=== PATIENT | female | born 1955 | race Caucasian/White ===

== ENCOUNTER 2020-09-03 15:35 | Emergency (ER) | payer MEDICARE, MEDICAID ==
[~2020-09-03] VITALS: Ht 165.1 cm; Wt 97.7 kg
[~2020-09-03 15:35] MED LIST: ASPI81TA52 PO; CARV3.122 PO; FURO40TA4 PO; GABA-532 PO; INSU100C4 SQ; MULT-933 PO; PANT40TA54 PO
[2020-09-03] MEDS ORDERED: normal saline 1000ML IV soln IVB ONE ×2 (16:15→21:45)
--- NOTE | 2020-09-03 16:25 | NUR ---
EKG NOT ABLE TO BE COMPLETED DUE TO PT HAVING LVAD.
[2020-09-03 16:44] LABS: BASOPHILS % (AUTO) 0.4 % (0-1); EOSINOPHILS % (AUTO) 0 % (0-6); HEMATOCRIT 26.2 % (35.0-45.0); HEMOGLOBIN 8.7 g/dl (12.0-16.0); LYMPHOCYTES # (AUTO) 0.4 X10'3 (1.1-4.8); LYMPHOCYTES % (AUTO) 5.7 % (21-51); MEAN CORPUSCULAR HEMOGLOBIN 27.8 PG (27.0-31.0); MEAN CORPUSCULAR VOLUME 84.3 FL (78-98); MEAN PLATELET VOLUME 9.2 FL (7.4-10.4); MONOCYTES # (AUTO) 0.8 X10'3 (0-0.9); MONOCYTES % (AUTO) 11.2 % (2-12); NEUTROPHILS # (AUTO) 5.9 X10'3 (1.8-7.7); NEUTROPHILS % (AUTO) 82.7 % (42-75); PLATELET COUNT 152 X10'3 (140-440); RED BLOOD COUNT 3.11 X10'6 (4.20-5.60); RED CELL DISTRIBUTION WIDTH 16.3 % (11.5-14.5); WHITE BLOOD COUNT 7.1 X10'3 (4.5-11.0)
[2020-09-03 16:55] LABS: ALANINE AMINOTRANSFERASE 15 U/L (12-78); ALBUMIN 3.1 G/DL (3.4-5.0); ALBUMIN/GLOBULIN RATIO 0.8 (1.1-1.5); ALKALINE PHOSPHATASE 76 IU/L (46-116); ANION GAP 11 (8-16); ASPARTATE AMINO TRANSFERASE 14 U/L (10-37); BILIRUBIN,TOTAL 0.6 MG/DL (0.1-1.0); BLOOD UREA NITROGEN 40 MG/DL (7-18); BUN/CREATININE RATIO 16.9 (6.6-38.0); CALCIUM 8.2 MG/DL (8.5-10.1); CHLORIDE 95 MMOL/L (99-107); CREATININE 2.37 MG/DL (0.40-0.90); GLUCOSE 204 MG/DL (70-104); POTASSIUM 4.4 MMOL/L (3.5-5.1); SODIUM 127 MMOL/L (135-145); TOTAL CARBON DIOXIDE 20.6 MMOL/L (24-32); TOTAL PROTEIN 7.1 G/DL (6.4-8.2); eGFR 21 ML/MIN
[2020-09-03 17:50] LABS: CLARITY,URINE CLOUDY (Clear); COLOR,URINE YELLOW (Yellow); GLUCOSE, URINE 100 mg/dl (Neg); KETONES,URINE NEGATIVE (Neg); LEUKOCYTE ESTERASE ,URINE NEGATIVE (Neg); NITRITES, URINE POSITIVE (Neg); OCCULT BLOOD,URINE TRACE-INTACT (Neg); PH,URINE 5.5 (4.8-8.0); PROTEIN,URINE 100 mg/dl (Neg); UA COLLECTION TYPE STRAIGHT CATH
--- NOTE | 2020-09-03 17:58 | NUR ---
HEMALATHA VORA GIVEN REPORT
[2020-09-03 18:03] LABS: SQUAMOUS EPITHELIAL CELL,UR FEW /LPF (FEW)
[2020-09-03 18:04] LABS: AMORPHOUS URATES 2+; BACTERIA,URINE 3+ /HPF (Neg); RBC,URINE 0-2 /HPF (0-2); WBC,URINE 0-4 /HPF (0-4)
[2020-09-03 19:19] VITALS: BP_DIAS 96
--- NOTE | 2020-09-03 19:28 | NUR ---
PTS SON REPORTS PT NEED TO USE BATHROOM. PLACED ON BP TO VOID.
--- NOTE | 2020-09-03 21:06 | NUR ---
son [facility] cell [phone] & second cell [phone]
[2020-09-03] MEDS ORDERED: normal saline 1000ml 1,000 ML IV ONE (21:45)
--- NOTE | 2020-09-03 21:52 | NUR ---
dr vides spoke to dr edwards from [facility] for md to
--- NOTE | 2020-09-03 21:54 | NUR ---
clarified dr vides's fluid orders: patient received 50o ml bolus, then needs ns @ 150 ml/hr
--- NOTE | 2020-09-03 22:46 | NUR ---
[place] [facility] [place] at bedside. pt to be flown. eta 1 hr 4 min from order picker time.
[2020-09-03] MEDS ORDERED: warfarin 10mg tablet PO ONE (23:25)
[2020-09-03] MEDS ORDERED: lisinopril 10 MG tablet PO ONE (23:25)
[2020-09-03] MEDS ORDERED: metFORMIN 500mg tablet PO ONE (23:25)
[2020-09-03] MEDS ORDERED: warfarin 4mg tablet PO ONE (23:35)
[2020-09-03] MEDS ORDERED: lisinopril 5mg tablet PO ONE (23:35)
[2020-09-04 00:28] VITALS: BP_SYST 120
--- NOTE | 2020-09-06 07:14 | NUR ---
Called [facility] at [phone] regarding sensitive report that we received back this morning. Berenice LOPEZ stated that they do not have a fax machine. Unable to sent sensitivity information to [facility]. Berenice LOPEZ stated that she would given [facility] ER contact information to MD and MD would contact me in the ER today.
--- NOTE | 2020-09-06 07:44 | NUR ---
Violetta LOPEZ with [facility] called back and gave fax number. [employer] faxed to [phone].
== END 2020-09-04 01:41 | disposition short-term general hospital (02) ==
LOC: ER 15:35
DX: N17.9 Acute kidney failure, unspecified (principal); Z20.822 Contact with and (suspected) exposure to COVID-19; E86.0 Dehydration; R42 Dizziness and giddiness; R41.0 Disorientation, unspecified; I50.9 Heart failure, unspecified; I48.91 Unspecified atrial fibrillation; E78.00 Pure hypercholesterolemia, unspecified; J44.9 Chronic obstructive pulmonary disease, unspecified; K21.9 Gastro-esophageal reflux disease without esophagitis; Z95.5 Presence of coronary angioplasty implant and graft; Z79.82 Long term (current) use of aspirin; Z79.899 Other long term (current) drug therapy
CPT/HCPCS: 36415; 71045; 80053; 81001; 83880; 84484; 85025; 87077; 87088; 87186; 87426; 99285; J7030

== ENCOUNTER 2021-03-17 14:21 | Outpatient (CLI) | payer MEDICARE, MEDICAID | END 2021-03-17 23:59 | disposition home or self-care (01) | LOC: CARD DIAG 14:21 | PROVIDERS: ATTEND Internal Medicine Cardiovascular Disease | DX: I08.3 Combined rheumatic disorders of mitral, aortic and tricuspid valves (principal); J90 Pleural effusion, not elsewhere classified; Z95.811 Presence of heart assist device | CPT/HCPCS: 71046; 93306 ==

== ENCOUNTER 2021-06-11 18:30 | Emergency (ER) | payer MEDICARE, MEDICAID ==
[~2021-06-11] VITALS: Ht 165.1 cm; Wt 91.9 kg
[2021-06-11 19:24] LABS: BASOPHILS # (AUTO) 0.1 X10'3 (0-0.2); BASOPHILS % (AUTO) 1.3 % (0-1); EOSINOPHILS # (AUTO) 0.2 X10'3 (0-0.9); EOSINOPHILS % (AUTO) 4.6 % (0-6); HEMATOCRIT 23.6 % (35.0-45.0); HEMOGLOBIN 7.5 g/dl (12.0-16.0); LYMPHOCYTES # (AUTO) 0.7 X10'3 (1.1-4.8); LYMPHOCYTES % (AUTO) 12.5 % (21-51); MEAN CORPUSCULAR HEMOGLOBIN 28.4 PG (27.0-31.0); MEAN CORPUSCULAR HGB CONC 31.9 g/dL (33.0-36.5); MEAN CORPUSCULAR VOLUME 88.9 FL (78-98); MONOCYTES # (AUTO) 0.5 X10'3 (0-0.9); MONOCYTES % (AUTO) 8.9 % (2-12); NEUTROPHILS # (AUTO) 3.8 X10'3 (1.8-7.7); NEUTROPHILS % (AUTO) 72.7 % (42-75); PLATELET COUNT 232 X10'3 (140-440); RED BLOOD COUNT 2.65 X10'6 (4.20-5.60); RED CELL DISTRIBUTION WIDTH 18.9 % (11.5-14.5); WHITE BLOOD COUNT 5.3 X10'3 (4.5-11.0)
[2021-06-11 19:41] LABS: ALANINE AMINOTRANSFERASE 40 U/L (12-78); ALBUMIN/GLOBULIN RATIO 1.1 (1.1-1.5); ALKALINE PHOSPHATASE 82 IU/L (46-116); ANION GAP 9 (8-16); ASPARTATE AMINO TRANSFERASE 30 U/L (10-37); BILIRUBIN,TOTAL 0.4 MG/DL (0.1-1.0); BLOOD UREA NITROGEN 48 MG/DL (7-18); BUN/CREATININE RATIO 26.7 (6.6-38.0); CALCIUM 9.3 MG/DL (8.5-10.1); CHLORIDE 104 MMOL/L (99-107); GLUCOSE 115 MG/DL (70-104); POTASSIUM 4.2 MMOL/L (3.5-5.1); SODIUM 138 MMOL/L (135-145); TOTAL CARBON DIOXIDE 24.6 MMOL/L (24-32); TOTAL PROTEIN 7.5 G/DL (6.4-8.2); eGFR 28 ML/MIN
[2021-06-11 19:49] LABS: MAGNESIUM 2.2 MG/DL (1.5-2.4)
[2021-06-11 21:34] LABS: OCCULT BLOOD STOOL POSITIVE (Neg)
[2021-06-11 21:38] LABS: ANISOCYTOSIS 2+; PLATELET ESTIMATE NORMAL; POLYCHROMASIA FEW
[2021-06-11 21:39] LABS: ELLIPTOCYTES FEW; TEAR DROP CELLS FEW
[2021-06-11 22:33] VITALS: BP 118/96
[2021-06-11 22:48] VITALS: BP 109/90
[2021-06-11 23:48] VITALS: BP 110/64
[2021-06-12 06:01] VITALS: BP 101/86
--- NOTE | 2021-06-12 09:10 | NUR ---
Patient's son, Bay, called and will be bringing patient's home meds within an hour. [facility]: [phone]
--- NOTE | 2021-06-12 10:15 | NUR ---
Patient's son brought patient's medications. Faxed medication list to pharmacy.
--- NOTE | 2021-06-12 13:24 | NUR ---
LVAD RN coordinator from [facility] called for update; she will call transfer hospital to help expedite acceptance from hospitalist.
[2021-06-12 16:52] LABS: HEMATOCRIT 25.2 % (35.0-45.0); HEMOGLOBIN 8.2 g/dl (12.0-16.0); MEAN CORPUSCULAR HEMOGLOBIN 28.9 PG (27.0-31.0); MEAN CORPUSCULAR HGB CONC 32.6 g/dL (33.0-36.5); MEAN CORPUSCULAR VOLUME 88.6 FL (78-98); MEAN PLATELET VOLUME 8.4 FL (7.4-10.4); PLATELET COUNT 199 X10'3 (140-440); RED BLOOD COUNT 2.85 X10'6 (4.20-5.60); RED CELL DISTRIBUTION WIDTH 17.4 % (11.5-14.5); WHITE BLOOD COUNT 4.6 X10'3 (4.5-11.0)
--- NOTE | 2021-06-12 17:54 | NUR ---
Called report to JOHN Spencer at [facility] [place]. [phone]
--- NOTE | 2021-06-12 18:32 | NUR ---
Report given to JOHN Gallardo for care prior to transport.
--- NOTE | 2021-06-12 18:44 | NUR ---
Spoke to [facility], report given. ETA 2015.
--- NOTE | 2021-06-12 20:30 | NUR ---
[facility] at bedside, report given.
== END 2021-06-12 20:30 | disposition short-term general hospital (02) ==
LOC: ER 18:31
DX: D64.9 Anemia, unspecified (principal); Z20.822 Contact with and (suspected) exposure to COVID-19; K92.2 Gastrointestinal hemorrhage, unspecified; R06.02 Shortness of breath; I48.91 Unspecified atrial fibrillation; I25.10 Atherosclerotic heart disease of native coronary artery without angina pectoris; E78.00 Pure hypercholesterolemia, unspecified; J44.9 Chronic obstructive pulmonary disease, unspecified; K21.9 Gastro-esophageal reflux disease without esophagitis; Z98.890 Other specified postprocedural states; Z79.82 Long term (current) use of aspirin; Z79.4 Long term (current) use of insulin; Z79.899 Other long term (current) drug therapy
CPT/HCPCS: 36415; 36430; 71045; 80053; 82272; 83735; 83880; 84484; 85008; 85025; 85027; 85610; 86885; 86900; 86901; 86920; 87635; 93005; 99291; C9803; P9016; 99285

== ENCOUNTER 2022-08-13 15:13 | Emergency (ER) | payer MEDICARE, MEDICAID ==
[~2022-08-13] VITALS: Ht 165.1 cm; Wt 90.9 kg
[2022-08-13 15:17] VITALS: BP 123/98
[2022-08-13] MEDS ORDERED: HYDROcodone/acetaminophen 10/325mg tab PO ONE (16:00)
[2022-08-13] MEDS ORDERED: LIDOcaine 5% patch TP STA (16:00)
[2022-08-13] MEDS ORDERED: LIDO-15 TD (16:13)
[2022-08-13] MEDS ORDERED: HYDR-3965 PO ×2 (16:13)
== END 2022-08-13 16:46 | disposition home or self-care (01) ==
LOC: ER 15:14
DX: M79.605 Pain in left leg (principal); M54.59 Other low back pain
CPT/HCPCS: 73590; 99283

== ENCOUNTER 2022-08-15 19:18 | Emergency (ER) | payer MEDICARE, MEDICAID ==
[~2022-08-15 19:18] MED LIST changes: +HYDR-3965 PO; +LIDO-15 TD
[2022-08-15] MEDS ORDERED: HYDR-3965 PO (19:42)
== END 2022-08-15 19:58 | disposition left against medical advice (07) ==
LOC: ER 19:19
DX: Z76.0 Encounter for issue of repeat prescription (principal); Z53.21 Procedure and treatment not carried out due to patient leaving prior to being seen by health care provider

== ENCOUNTER 2022-09-17 12:49 | Outpatient (CLI) | payer MEDICARE, MEDICAID | END 2022-09-17 23:59 | disposition home or self-care (01) | LOC: CARD DIAG 12:49 | PROVIDERS: ATTEND Internal Medicine Cardiovascular Disease | DX: I08.8 Other rheumatic multiple valve diseases (principal); Z95.811 Presence of heart assist device | CPT/HCPCS: 93306 ==

== ENCOUNTER 2023-02-17 07:30 | Inpatient (IN) | payer MEDICARE, MEDICAID ==
[~2023-02-17] VITALS: Ht 165.1 cm; Wt 84.9 kg
[2023-02-17] MEDS ORDERED: ringers solution, lacted 1,000 ML IV ONE (08:05)
[2023-02-17 08:30] LABS: BASOPHILS % (AUTO) 0.2 % (0-1); EOSINOPHILS % (AUTO) 0.1 % (0-6); HEMOGLOBIN 8.3 g/dl (12.0-16.0); LYMPHOCYTES # (AUTO) 0.3 X10'3 (1.1-4.8); LYMPHOCYTES % (AUTO) 2.9 % (21-51); MEAN CORPUSCULAR HEMOGLOBIN 29.1 PG (27.0-31.0); MEAN CORPUSCULAR HGB CONC 33.2 g/dL (33.0-36.5); MEAN CORPUSCULAR VOLUME 87.5 FL (78-98); MEAN PLATELET VOLUME 7.3 FL (7.4-10.4); MONOCYTES # (AUTO) 0.5 X10'3 (0-0.9); NEUTROPHILS # (AUTO) 9.6 X10'3 (1.8-7.7); NEUTROPHILS % (AUTO) 91.8 % (42-75); PLATELET COUNT 190 X10'3 (140-440); RED BLOOD COUNT 2.86 X10'6 (4.20-5.60); RED CELL DISTRIBUTION WIDTH 15.6 % (11.5-14.5); WHITE BLOOD COUNT 10.5 X10'3 (4.5-11.0)
[2023-02-17 08:43] LABS: APTT 32 SECONDS (22-32); INR 1.5 INR; PROTHROMBIN TIME 15.3 SECONDS (9.0-12.0)
[2023-02-17 08:52] LABS: ALANINE AMINOTRANSFERASE 13 U/L (12-78); ALBUMIN 2.8 G/DL (3.4-5.0); ALBUMIN/GLOBULIN RATIO 0.7 (1.1-1.5); ALKALINE PHOSPHATASE 61 IU/L (46-116); ANION GAP 8 (8-16); ASPARTATE AMINO TRANSFERASE 18 U/L (10-37); BILIRUBIN,TOTAL 0.7 MG/DL (0.1-1.0); BLOOD UREA NITROGEN 25 MG/DL (7-18); BUN/CREATININE RATIO 13.2 (10.0-20.0); CALCIUM 8.3 MG/DL (8.5-10.1); CHLORIDE 94 MMOL/L (99-107); CREATININE 1.89 MG/DL (0.40-0.90); GLUCOSE 238 MG/DL (70-104); LIPASE 16 U/L (16-77); MAGNESIUM 2.1 MG/DL (1.5-2.4); SODIUM 125 MMOL/L (135-145); TOTAL CARBON DIOXIDE 23.5 MMOL/L (24-32); TOTAL PROTEIN 6.7 G/DL (6.4-8.2); eCRCL 26 ML/MIN; eGFR 26 ML/MIN
[2023-02-17 09:25] LABS: ACETONE NEGATIVE (NEGATIVE)
[2023-02-17] MEDS ORDERED: ondansetron/PF 4mg/2ml inj IV ONE (09:50)
[2023-02-17] MEDS: morphine 2 MG/ML inj. syringe IV PRN ×2 (10:11→15:18)
[2023-02-17 11:40] LABS: BILIRUBIN,URINE NEGATIVE (Neg); CLARITY,URINE SLIGHTLY CLOUDY (Clear); COLOR,URINE YELLOW (Yellow); GLUCOSE, URINE 100 mg/dl (Neg); KETONES,URINE NEGATIVE (Neg); LEUKOCYTE ESTERASE ,URINE SMALL (Neg); NITRITES, URINE NEGATIVE (Neg); OCCULT BLOOD,URINE MODERATE (Neg); PROTEIN,URINE 100 mg/dl (Neg); UROBILINOGEN,URINE 0.2 E.U/dL (0.2-1.0)
[2023-02-17 11:45] LABS: UA COLLECTION TYPE STRAIGHT CATH
[2023-02-17 11:46] LABS: SQUAMOUS EPITHELIAL CELL,UR FEW /LPF (FEW)
[2023-02-17 11:47] LABS: BACTERIA,URINE 4+ /HPF (Neg); WBC,URINE 50-100 /HPF (0-4)
[2023-02-17 11:48] LABS: TRANSITIONAL EPI CELLS,URINE FEW /HPF
[2023-02-17 13:09] VITALS: BP 97/77
[2023-02-17] MEDS ORDERED: CefTRIAXone/D5W-Rocephin 1gm 50 ML IV ONE (13:50)
[2023-02-17] MEDS ORDERED: magnesium Cl slow-release 64mg tablet PO PRN (15:05)
[2023-02-17] MEDS ORDERED: morphine 2 MG/ML inj. syringe IV PRN ×2 (15:05)
[2023-02-17] MEDS ORDERED: glucagon, human recombinant 1mg kit SUBCUT PRN (15:05)
[2023-02-17] MEDS ORDERED: potassium Cl 40MEQ/1/2NS 520ml 520 ML IV PRN (15:05)
[2023-02-17] MEDS ORDERED: DEXTROSE 15 GM of carb/4 tabs (each vial/BOTTLE has 4 tablets) PO PRN ×2 (15:05)
[2023-02-17] MEDS ORDERED: magnesium 2GM in 50ml NS 50 ML IV PRN (15:05)
[2023-02-17] MEDS ORDERED: ondansetron/PF 4mg/2ml inj IV PRN (15:05)
[2023-02-17] MEDS ORDERED: dextrose 50%-water 50ml dispensing syringe IV PRN ×2 (15:05)
[2023-02-17] MEDS ORDERED: acetaminophen 325mg tablet PO PRN (15:05)
[2023-02-17] MEDS ORDERED: MESSAGE TO PHARMACY PO ONE (15:05)
[2023-02-17] MEDS ORDERED: potassium Cl 20 mEq SR tablet PO PRN ×2 (15:05)
[2023-02-17] MEDS ORDERED: magnesium 4gm in 100ml NS 100 ML IV PRN (15:05)
[2023-02-17] MEDS: normal saline 1000ml 1,000 ML IV SCH (15:58)
--- NOTE | 2023-02-17 16:06 | NUR ---
DR MCMAHAN CALLED, PT ADMISSION ORDER TO PCU CHANGED TO ORTHO FOR FLOOR ADMISSION
[2023-02-17 16:55] LABS: HEMOGLOBIN A1C 5.6 % (4.5-6.2)
[2023-02-17 16:57] LABS: MAGNESIUM 2.2 MG/DL (1.5-2.4)
[2023-02-17] MEDS: HYDROcodone/acetaminophen 5mg/325mg tablet PO PRN (18:19)
[2023-02-17] MEDS: K and/or MAG REPLACEMENT MC SCH (19:50)
[2023-02-17] MEDS: lactobacillus rhamnosus 10,000 MMU CELLS/CAPSULE PO SCH (19:56)
[2023-02-17] MEDS: heparin, porcine 5000 units/ml vial SQ SCH (19:57)
[2023-02-17] MEDS: insulin Lispro (HumaLOG) vial - multi-dose SQ SCH (20:01)
[2023-02-17] MEDS: insulin glargine (Lantus) pen - multi-dose SQ SCH (20:03)
[2023-02-18] MEDS: normal saline 1000ml 1,000 ML IV SCH ×2 (04:22→09:13)
--- NOTE | 2023-02-18 04:42 | NUR ---
I have reviewed and agree with all interventions, assessments performed and documented by MELISSA Perez.
[2023-02-18] MEDS: K and/or MAG REPLACEMENT MC SCH ×2 (08:00→19:13)
[2023-02-18] MEDS: lactobacillus rhamnosus 10,000 MMU CELLS/CAPSULE PO SCH ×2 (09:02→19:16)
[2023-02-18] MEDS: CefTRIAXone 2gm/D5W 50ml BAG 50 ML IV SCH (09:02)
[2023-02-18] MEDS: heparin, porcine 5000 units/ml vial SQ SCH ×2 (09:03→19:16)
[2023-02-18] MEDS: HYDROcodone/acetaminophen 10/325mg tab PO PRN ×3 (09:13→21:08)
[2023-02-18 10:18] VITALS: RESP 16
--- NOTE | 2023-02-18 10:37 | NUR ---
Patient in room ORTHO 4010. I have received report from arnaldo TORRES and had the opportunity to ask questions and assume patient care.
[2023-02-18 11:00] VITALS: RESP 16; O2SAT 96
[2023-02-18] MEDS: insulin Lispro (HumaLOG) vial - multi-dose SQ SCH (13:43)
[2023-02-18 14:29] LABS: BASOPHILS % (AUTO) 0.4 % (0-1); EOSINOPHILS # (AUTO) 0.2 X10'3 (0-0.9); EOSINOPHILS % (AUTO) 2.5 % (0-6); HEMOGLOBIN 8.4 g/dl (12.0-16.0); LYMPHOCYTES # (AUTO) 0.3 X10'3 (1.1-4.8); LYMPHOCYTES % (AUTO) 4.1 % (21-51); MEAN CORPUSCULAR HEMOGLOBIN 29.5 PG (27.0-31.0); MEAN CORPUSCULAR HGB CONC 33.4 g/dL (33.0-36.5); MEAN CORPUSCULAR VOLUME 88.4 FL (78-98); MEAN PLATELET VOLUME 8.3 FL (7.4-10.4); MONOCYTES # (AUTO) 0.3 X10'3 (0-0.9); MONOCYTES % (AUTO) 5.1 % (2-12); NEUTROPHILS # (AUTO) 5.8 X10'3 (1.8-7.7); NEUTROPHILS % (AUTO) 87.9 % (42-75); PLATELET COUNT 182 X10'3 (140-440); RED BLOOD COUNT 2.83 X10'6 (4.20-5.60); RED CELL DISTRIBUTION WIDTH 15.9 % (11.5-14.5); WHITE BLOOD COUNT 6.6 X10'3 (4.5-11.0)
[2023-02-18 14:52] LABS: ALANINE AMINOTRANSFERASE 11 U/L (12-78); ALBUMIN 2.6 G/DL (3.4-5.0); ALBUMIN/GLOBULIN RATIO 0.7 (1.1-1.5); ALKALINE PHOSPHATASE 67 IU/L (46-116); ANION GAP 8 (8-16); ASPARTATE AMINO TRANSFERASE 34 U/L (10-37); BILIRUBIN,TOTAL 0.3 MG/DL (0.1-1.0); BLOOD UREA NITROGEN 29 MG/DL (7-18); BUN/CREATININE RATIO 14.8 (10.0-20.0); CALCIUM 8.6 MG/DL (8.5-10.1); CHLORIDE 99 MMOL/L (99-107); CHOL/HDL RATIO 4.6 (0.00-4.99); CHOLESTEROL 156 MG/DL (0-200); CREATININE 1.96 MG/DL (0.40-0.90); GLUCOSE 148 MG/DL (70-104); HDL CHOLESTEROL 34 MG/DL (35-60); LDL CHOLESTEROL 97 MG/DL (50-100); MAGNESIUM 2.2 MG/DL (1.5-2.4); PHOSPHORUS 3.7 MG/DL (2.3-4.5); SODIUM 132 MMOL/L (135-145); TOTAL CARBON DIOXIDE 25.1 MMOL/L (24-32); TOTAL PROTEIN 6.4 G/DL (6.4-8.2); TRIGLYCERIDES 85 MG/DL (20-135); eCRCL 25 ML/MIN; eGFR 25 ML/MIN
[2023-02-18 16:26] VITALS: RESP 16
[2023-02-18] MEDS ORDERED: HYDR-4070 PO (17:12)
[2023-02-18] MEDS ORDERED: PNV1TABL87 PO (17:12)
[2023-02-18] MEDS ORDERED: METF-1203 PO (17:12)
[2023-02-18] MEDS ORDERED: WARF6TAB49 PO (17:12)
[2023-02-18] MEDS ORDERED: BUME2TAB7 PO (17:12)
[2023-02-18 18:00] VITALS: PULSE 86; PULSE 90; RESP 16; RESP 20; TEMP 97.1; TEMP 97.8; O2SAT 97; O2SAT 98
--- NOTE | 2023-02-18 18:10 | NUR ---
Patient appears stable LVAD in place. patient has batteries charging on cabinet, is very well educated on her LVAD. All cares given med rec being done at this time by dr Shipley. Report given to Paulette LOPEZ
--- NOTE | 2023-02-18 18:10 | NUR ---
Patient in room ORTHO 4010. I have received report from JOHN Shipley and had the opportunity to ask questions and assume patient care.
[2023-02-18 20:00] VITALS: RESP 18; O2SAT 94
[2023-02-18] MEDS: nystatin 15 GM powder TP SCH (20:55)
[2023-02-18] MEDS ORDERED: warfarin 4mg tablet PO ONE (21:00)
[2023-02-18] MEDS: insulin glargine (Lantus) pen - multi-dose SQ SCH (21:00)
[2023-02-19] MEDS: hydrALAZINE 25 MG tablet PO SCH ×3 (00:38→16:00)
--- NOTE | 2023-02-19 06:39 | NUR ---
Problems reprioritized. Patient report given, questions answered & plan of care reviewed with JOHN Shipley.
[2023-02-19 06:47] LABS: BASOPHILS % (AUTO) 0.5 % (0-1); EOSINOPHILS # (AUTO) 0.2 X10'3 (0-0.9); EOSINOPHILS % (AUTO) 3.8 % (0-6); HEMATOCRIT 24.5 % (35.0-45.0); HEMOGLOBIN 8.2 g/dl (12.0-16.0); LYMPHOCYTES # (AUTO) 0.5 X10'3 (1.1-4.8); MEAN CORPUSCULAR HEMOGLOBIN 29.6 PG (27.0-31.0); MEAN CORPUSCULAR HGB CONC 33.3 g/dL (33.0-36.5); MEAN CORPUSCULAR VOLUME 88.8 FL (78-98); MEAN PLATELET VOLUME 8.1 FL (7.4-10.4); MONOCYTES # (AUTO) 0.3 X10'3 (0-0.9); MONOCYTES % (AUTO) 7.4 % (2-12); NEUTROPHILS # (AUTO) 3.6 X10'3 (1.8-7.7); NEUTROPHILS % (AUTO) 78.3 % (42-75); PLATELET COUNT 164 X10'3 (140-440); RED BLOOD COUNT 2.76 X10'6 (4.20-5.60); RED CELL DISTRIBUTION WIDTH 16.1 % (11.5-14.5); WHITE BLOOD COUNT 4.5 X10'3 (4.5-11.0)
--- NOTE | 2023-02-19 06:55 | NUR ---
Patient in room ORTHO 4010. I have received report from Paulette LOPEZ and had the opportunity to ask questions and assume patient care.
[2023-02-19] MEDS: normal saline 1000ml 1,000 ML IV SCH ×2 (07:05→20:25)
[2023-02-19 07:08] LABS: ALANINE AMINOTRANSFERASE 20 U/L (12-78); ALBUMIN 2.6 G/DL (3.4-5.0); ALBUMIN/GLOBULIN RATIO 0.7 (1.1-1.5); ALKALINE PHOSPHATASE 78 IU/L (46-116); ANION GAP 9 (8-16); ASPARTATE AMINO TRANSFERASE 32 U/L (10-37); BILIRUBIN,TOTAL 0.3 MG/DL (0.1-1.0); BLOOD UREA NITROGEN 37 MG/DL (7-18); BUN/CREATININE RATIO 15.7 (10.0-20.0); CALCIUM 8.5 MG/DL (8.5-10.1); CHLORIDE 97 MMOL/L (99-107); CREATININE 2.35 MG/DL (0.40-0.90); GLUCOSE 140 MG/DL (70-104); MAGNESIUM 2.1 MG/DL (1.5-2.4); PHOSPHORUS 4.1 MG/DL (2.3-4.5); POTASSIUM 4.3 MMOL/L (3.5-5.1); SODIUM 128 MMOL/L (135-145); TOTAL CARBON DIOXIDE 22.4 MMOL/L (24-32); TOTAL PROTEIN 6.5 G/DL (6.4-8.2); eCRCL 21 ML/MIN; eGFR 21 ML/MIN
[2023-02-19 07:53] VITALS: PULSE 103; RESP 20; TEMP 97.1; O2SAT 94
[2023-02-19] MEDS: CefTRIAXone 2gm/D5W 50ml BAG 50 ML IV SCH (07:59)
[2023-02-19] MEDS: K and/or MAG REPLACEMENT MC SCH ×2 (08:00→20:00)
[2023-02-19] MEDS ORDERED: bumetanide 1mg tablet PO SCH (08:00)
[2023-02-19] MEDS: lactobacillus rhamnosus 10,000 MMU CELLS/CAPSULE PO SCH ×2 (08:01→19:46)
[2023-02-19] MEDS: heparin, porcine 5000 units/ml vial SQ SCH (08:04)
[2023-02-19] MEDS: nystatin 15 GM powder TP SCH ×3 (08:04→21:00)
[2023-02-19] MEDS: HYDROcodone/acetaminophen 5mg/325mg tablet PO PRN ×3 (08:15→18:09)
[2023-02-19 10:00] VITALS: PULSE 90; RESP 16; TEMP 98.4; O2SAT 98
[2023-02-19 14:42] LABS: INR 1.4 INR; PROTHROMBIN TIME 15.1 SECONDS (9.0-12.0)
--- NOTE | 2023-02-19 15:46 | NUR ---
Initial: Pt admit for dehydration secondary to acute onset of diarrhea and UTI leading to SIRS/sepsis. Pt currently on a CHO controlled diet and eating well, documented with 100% PO intake of meals meeting 100% estimated nutrient needs. Per EMR pt with T2DM, well controlled with A1c 5.6%. Recommend changing diet to heart healthy, physician paged. LBM 02/17 per EMR. Will continue to follow and make recommendations as appropriate. Recommendations: 1) Change to heart healthy diet as T2DM well controlled with A1c 5.6%, physician paged 02/19 2) Monitor need for ONS/additional protein 3) Routine bowel care 4) Weekly scaled weights Addendum: 02/19/23 at [address] Amended: Links added.
[2023-02-19] MEDS: morphine 2 MG/ML inj. syringe IV PRN (19:46)
[2023-02-19 21:00] VITALS: PULSE 98; RESP 17; TEMP 96.8; O2SAT 97
[2023-02-19] MEDS: insulin glargine (Lantus) pen - multi-dose SQ SCH (21:00)
[2023-02-19] MEDS ORDERED: warfarin 3mg tablet PO ONE (21:00)
[2023-02-20] MEDS: HYDROcodone/acetaminophen 10/325mg tab PO PRN ×3 (02:07→15:15)
[2023-02-20] MEDS: hydrALAZINE 25 MG tablet PO SCH ×2 (02:10→11:41)
[2023-02-20 06:00] VITALS: PULSE 83; RESP 17; TEMP 97.3; O2SAT 95
[2023-02-20 06:03] LABS: BASOPHILS % (AUTO) 0.6 % (0-1); EOSINOPHILS # (AUTO) 0.1 X10'3 (0-0.9); EOSINOPHILS % (AUTO) 4.1 % (0-6); HEMATOCRIT 23.2 % (35.0-45.0); HEMOGLOBIN 7.7 g/dl (12.0-16.0); LYMPHOCYTES # (AUTO) 0.4 X10'3 (1.1-4.8); LYMPHOCYTES % (AUTO) 9.9 % (21-51); MEAN CORPUSCULAR HEMOGLOBIN 29.5 PG (27.0-31.0); MEAN CORPUSCULAR HGB CONC 33.2 g/dL (33.0-36.5); MEAN CORPUSCULAR VOLUME 88.8 FL (78-98); MEAN PLATELET VOLUME 8.4 FL (7.4-10.4); MONOCYTES # (AUTO) 0.3 X10'3 (0-0.9); MONOCYTES % (AUTO) 8.6 % (2-12); NEUTROPHILS # (AUTO) 2.8 X10'3 (1.8-7.7); NEUTROPHILS % (AUTO) 76.8 % (42-75); PLATELET COUNT 170 X10'3 (140-440); RED BLOOD COUNT 2.62 X10'6 (4.20-5.60); RED CELL DISTRIBUTION WIDTH 15.9 % (11.5-14.5); WHITE BLOOD COUNT 3.6 X10'3 (4.5-11.0)
[2023-02-20 06:09] LABS: INR 1.5 INR
[2023-02-20 06:18] LABS: ALANINE AMINOTRANSFERASE 33 U/L (12-78); ALBUMIN 2.6 G/DL (3.4-5.0); ALBUMIN/GLOBULIN RATIO 0.7 (1.1-1.5); ALKALINE PHOSPHATASE 90 IU/L (46-116); ANION GAP 10 (8-16); ASPARTATE AMINO TRANSFERASE 39 U/L (10-37); BILIRUBIN,TOTAL 0.3 MG/DL (0.1-1.0); BLOOD UREA NITROGEN 35 MG/DL (7-18); CALCIUM 8.4 MG/DL (8.5-10.1); CHLORIDE 100 MMOL/L (99-107); CREATININE 2.06 MG/DL (0.40-0.90); GLUCOSE 111 MG/DL (70-104); PHOSPHORUS 3.9 MG/DL (2.3-4.5); POTASSIUM 4.2 MMOL/L (3.5-5.1); SODIUM 132 MMOL/L (135-145); TOTAL CARBON DIOXIDE 22.5 MMOL/L (24-32); TOTAL PROTEIN 6.5 G/DL (6.4-8.2); eCRCL 24 ML/MIN; eGFR 24 ML/MIN
[2023-02-20 06:31] LABS: PROTHROMBIN TIME 16.1 SECONDS (9.0-12.0)
--- NOTE | 2023-02-20 06:52 | NUR ---
Patient in room ORTHO 4010. I have received report from Violetta and had the opportunity to ask questions and assume patient care.
[2023-02-20] MEDS: K and/or MAG REPLACEMENT MC SCH (07:01)
--- NOTE | 2023-02-20 07:01 | NUR ---
patient appearing weak and tired. Able to sleep small amounts. States that she really wants to go home. Badger given for pain with good result . Report given to curtis LOPEZ
[2023-02-20] MEDS: CefTRIAXone 2gm/D5W 50ml BAG 50 ML IV SCH (08:06)
[2023-02-20] MEDS: lactobacillus rhamnosus 10,000 MMU CELLS/CAPSULE PO SCH (08:06)
[2023-02-20 10:00] VITALS: PULSE 82; RESP 16; TEMP 98; O2SAT 95
[2023-02-20 11:41] VITALS: PULSE 82
[2023-02-20] MEDS ORDERED: LACT1CAP86 PO (14:43)
[2023-02-20] MEDS ORDERED: NYST15CR36 TOP (14:43)
[2023-02-20] MEDS ORDERED: CIPR-429 PO (14:43)
[2023-02-20] MEDS ORDERED: warfarin 3mg tablet PO ONE (21:00)
== END 2023-02-20 17:49 | disposition home or self-care (01) | DRG 871 ==
LOC: ER 07:31 → ED HOLD 15:10 → EDBEDREQ 02-18 06:16 → ORTHO 4S 02-18 08:00
PROVIDERS: ADMIT Family Medicine; ATTEND Family Medicine
DX: A41.9 Sepsis, unspecified organism (principal); J96.01 Acute respiratory failure with hypoxia; N18.4 Chronic kidney disease, stage 4 (severe); E87.1 Hypo-osmolality and hyponatremia; N17.9 Acute kidney failure, unspecified; I50.22 Chronic systolic (congestive) heart failure; N30.90 Cystitis, unspecified without hematuria; E86.0 Dehydration; E78.00 Pure hypercholesterolemia, unspecified; J44.9 Chronic obstructive pulmonary disease, unspecified; K21.9 Gastro-esophageal reflux disease without esophagitis; E11.65 Type 2 diabetes mellitus with hyperglycemia; R15.9 Full incontinence of feces; R19.7 Diarrhea, unspecified; B96.20 Unspecified Escherichia coli [E. coli] as the cause of diseases classified elsewhere; D63.8 Anemia in other chronic diseases classified elsewhere; L30.4 Erythema intertrigo; I48.91 Unspecified atrial fibrillation; I25.10 Atherosclerotic heart disease of native coronary artery without angina pectoris; Z95.1 Presence of aortocoronary bypass graft; Z79.899 Other long term (current) drug therapy; Z79.82 Long term (current) use of aspirin
CPT/HCPCS: 36415; 74176; 80053; 80061; 81001; 82009; 82800; 82948; 83036; 83605; 83690; 83735; 83880; 84100; 84132; 84145; 84484; 85025; 85610; 85730; 87040; 87077; 87081; 87088; 87186; 99285; A4615; C1758; G0378; J0696; J1644; J1815; J2270; J2405; J7030; J7120